=== PATIENT | female | born 1985 | race Caucasian/White ===

== ENCOUNTER 2017-05-03 18:29 | Inpatient (IN) | payer OTHER ==
[2017-05-03 19:39] VITALS: BMI 28.9
[2017-05-03 19:53] LABS: BASOPHIL 0.2 % (0-2.0); EOSINOPHIL 1.4 % (0-4.5); MCH 30.1 pg (25.7-33.7); MCHC 33.5 g/dl (32.0-36.0); MEAN CELL VOLUME 89.9 fl (80-96); MEAN PLT VOLUME 8.8 fl (7.5-11.1); NEUTROPHILS 72.3 % (42.8-82.8); PLATELET COUNT 203 K/MM3 (134-434); RDW 12.8 % (11.6-15.6); WHITE BLOOD COUNT 8.3 K/mm3 (4.0-10.0)
[2017-05-03 20:00] LABS: ANION GAP 9 (8-16); CALCIUM 8.6 mg/dL (8.5-10.1); CO2 25 mmol/L (21-32); CREATININE 0.5 mg/dL (0.55-1.02); GLUCOSE,RANDOM 87 mg/dL (74-106)
--- NOTE | 2017-05-03 20:00 | HP ---
Past Medical History - Primary Care Physician PCP:: Jacklyn Ivory - Admission Chief Complaint: 32 yo P0 @ 39.6 wks with advanced cervical dialation, late term History Source: Patient - Past Medical History ...: 1 ...Para: 0 ...Term: 0 ...: 0 ...Spon : 0 ...Induced : 0 ...Multiple Gestation: 0 ...LMP: 07/25/16 ... Weeks Gestation by Dates: 39.6 ...EDC by Dates: 05/01/17 ...EDC by Sono: 05/04/17 Heme/Onc: Yes: Anemia - Past Surgical History Past Surgical History: Yes: None Hx Myomectomy: No Hx Transabdominal Cerclage: No - Smoking History Smoking history: Never smoked Have you smoked in the past 12 months: No - Alcohol/Substance Use Hx Alcohol Use: No History of Substance Use: reports: None - Social History Usual Living Arrangement: Yes: With Spouse Home Medications - Allergies Allergies/Adverse Reactions: Allergies Allergy/AdvReac Type Severity Reaction Status Date / Time Penicillins Allergy Rash Verified 10/21/16 07:00 - Home Medications Home Medications: Ambulatory Orders Pnv95/Iron Fum/Folic Acid [ Caplet] 1 each PO DAILY 10/21/16 Physical Exam - Maternity Vital Signs: Vital Signs Temperature 98.1 F 05/03/17 19:19 Pulse Rate 93 H 05/03/17 19:19 Respiratory Rate 20 05/03/17 19:19 Blood Pressure 125/86 05/03/17 19:19 O2 Sat by Pulse Oximetry (%) Constitutional: Yes: Well Nourished Eyes: Yes: WNL HENT: Yes: WNL Neck: Yes: WNL Cardiovascular: Yes: WNL Lungs: Clear to auscultation Breast(s): Yes: WNL - Abdominal Exam/OB Fundal Height: 39 (EFW 3500gm) Number of Fetuses: Single Presentation: Vertex Contractions: Yes Regularity: Irregular Intensity: Mild Monitor Mode: External Heart Rate (range): 140 Heart Rate Location: Midline Category: I Accelerations: Uniform Decelerations: None - Vaginal Exam/OB Vaginal Bleediing: No Dilatation (cm): 4 Effacement (%): 80% Amniotic Membrane Status: Intact Presentation: Vertex/Position Station: -3 - Physical Exam Musculoskeletal: Yes: WNL Extremities: Yes: WNL ...Motor Strength: WNL Psychiatric: Yes: WNL - Labs Lab Results: CBC, BMP 05/03/17 19:29 Problem List - Problems (1) Anemia affecting first Code(s): O99.019 - ANEMIA COMPLICATING , UNSPECIFIED TRIMESTER Assessment/Plan 32 yo P0 @ 39.6wks late term with advanced cervical dilation Desires augmentation of labor risk of failed augmentation and possible c/s discussed Overall gynecoid pelvis and reassuring FHR Will start Pitocin Desires Epidural for pain management
[2017-05-03] MEDS ORDERED: OXYTOCIN 15 UNITS/ LR 250 ML 250 ML IVPB SCH (20:15)
[2017-05-03 20:23] LABS: INR 1.04 (0.82-1.09); PROTHROMBIN TIME (PATIENT) 11.4 SEC (9.98-11.88)
[2017-05-03 20:25] LABS: ACTIVATED PTT 26.2 SECONDS (26.9-34.4)
[2017-05-03] MEDS ORDERED: DEXTROSE 5%-LACTATED RINGERS 1,000 ML IV SCH (20:30)
[2017-05-03 20:42] LABS: HIV 1 & 2 AB NEGATIVE; HIV 1 AGp24 NEGATIVE
[2017-05-03] MEDS: ELECTROLYTE-148 SOLN 1,000 ML IV SCH (22:50)
[2017-05-04] MEDS ORDERED: FENTANYL/BUPIVACAINE/NS/PF - PCEA - 50 ML DISP.SYRIN EP SCH (00:15)
[2017-05-04] MEDS: ELECTROLYTE-148 SOLN 1,000 ML IV SCH (02:00)
[2017-05-04] MEDS ORDERED: BENZOCAINE 20% 57 GM BOTTLE TP PRN (06:37)
[2017-05-04] MEDS ORDERED: METHYLERGONOVINE MALEATE 0.2 MG/1 ML AMP IM PRN (06:37)
[2017-05-04] MEDS ORDERED: BENZOCAINE 28 GM HEMORRHOIDAL OINTMENT TP PRN (06:37)
[2017-05-04] MEDS ORDERED: BISACODYL 10 MG SUPP.RECT RC PRN (06:37)
[2017-05-04] MEDS ORDERED: WITCH HAZEL 50% (TUCKS) 40 PAD/JAR PAD TP PRN (06:37)
--- NOTE | 2017-05-04 06:37 | PN ---
Delivery - Delivery Vaginal Delivery: No Problems Type of Anesthesia: Epidural Episiotomy/Laceration: 1st degree EBL (cc): 400 (Methergine given) Delivery, Single - Stages of Labor Date 1st Stage Initiatied: 05/03/17 Time 1st Stage Initiated: 22:00 Date 2nd Stage Initiated: 05/04/17 Time 2nd Stage Initiated: 05:30 Date of Delivery: 05/04/17 Time of Delivery: 06:11 Date Placenta Delivered: 05/04/17 Time Placenta Delivered: :17 Placenta: Yes: Spontaneous, Normal Configuration - Condition of Gender: Female Position: Left, OA - 1 Minute Total Score: 9 5 Minutes Total Score: 9 - Feeding Plan Initial Plan: Elected not to breastfeed exclusively throughout hospitalization Benefits of Exclusively reinforced: Yes Remarks - Remarks Remarks: Uncomplicated head and shoulder delivery compound left hand and cord around the neck once, reduced delayed cord clamping, on maternal abdomen 32yo P0 @ 40wks
[2017-05-04] MEDS ORDERED: D5W-LR W/ 20 UNITS OXYTOCIN 1,000 ML IV SCH (06:45)
[2017-05-04] MEDS: IBUPROFEN 600 MG TABLET (FP) PO PRN ×2 (07:00→21:44)
[2017-05-04] MEDS: PRENATAL VITAMINS W/ FOLIC ACID TABLET (FP) PO SCH (10:03)
[2017-05-04] MEDS: FERROUS SO4 325 MG TABLET (FP) PO SCH ×2 (10:04→21:43)
[2017-05-04] MEDS: ACETAMINOPHEN 325 MG TABLET (FP) PO PRN (21:43)
[2017-05-05 08:07] LABS: BASOPHIL 0.4 % (0-2.0); MCH 30.9 pg (25.7-33.7); MCHC 34.4 g/dl (32.0-36.0); MEAN PLT VOLUME 8.2 fl (7.5-11.1); NEUTROPHILS 66.5 % (42.8-82.8); PLATELET COUNT 146 K/MM3 (134-434); RDW 13.6 % (11.6-15.6); WHITE BLOOD COUNT 7.5 K/mm3 (4.0-10.0)
[2017-05-05] MEDS: PRENATAL VITAMINS W/ FOLIC ACID TABLET (FP) PO SCH (09:16)
[2017-05-05] MEDS: FERROUS SO4 325 MG TABLET (FP) PO SCH ×2 (09:16→22:06)
[2017-05-05] MEDS ORDERED: SENNOSIDES/DOCUSATE COMBO (SENNA PLUS) TABLET (UD) PO PRN (22:00)
[2017-05-05] MEDS: IBUPROFEN 600 MG TABLET (FP) PO PRN (22:07)
[2017-05-05] MEDS: ACETAMINOPHEN 325 MG TABLET (FP) PO PRN (22:08)
--- NOTE | 2017-05-05 22:34 | PN ---
Post Progress Note - Subjective Subjective: No complaints. Lochia is scant Post Day: 1 Type of Delivery: Vital Signs: Vital Signs Temperature 97.9 F 05/05/17 07:10 Pulse Rate 71 05/05/17 07:10 Respiratory Rate 20 05/05/17 07:10 Blood Pressure 114/79 05/05/17 07:10 O2 Sat by Pulse Oximetry (%) 100 05/04/17 07:30 Breast Exam: Yes: Soft Uterus: Yes: Fundus Firm Abdomen/GI: Yes: Abdomen soft, Passing flatus, Tolerating PO Lochia: Yes: Rubra Lochia, amount: Small Extremities: Yes: Calves non-tender, Edema (trace) Perineum: Yes: Intact Activity: Ambulating - Labs Labs: CBC WBC 7.5 K/mm3 (4.0-10.0) 05/05/17 07:35 RBC 2.95 M/mm3 (3.60-5.2) L 05/05/17 07:35 Hgb 9.1 GM/dL (10.7-15.3) L 05/05/17 07:35 Hct 26.5 % (32.4-45.2) L 05/05/17 07:35 MCV 90.0 fl (80-96) 05/05/17 07:35 MCHC 34.4 g/dl (32.0-36.0) 05/05/17 07:35 RDW 13.6 % (11.6-15.6) 05/05/17 07:35 Plt Count 146 K/MM3 (134-434) D 05/05/17 07:35 MPV 8.2 fl (7.5-11.1) 05/05/17 07:35 Neutrophils % 66.5 % (42.8-82.8) 05/05/17 07:35 Lymphocytes % 24.9 % (8-40) D 05/05/17 07:35 Monocytes % 5.2 % (3.8-10.2) 05/05/17 07:35 Eosinophils % 3.0 % (0-4.5) D 05/05/17 07:35 Basophils % 0.4 % (0-2.0) 05/05/17 07:35 Assessment/Plan PPD #1 s/p Pt is well, stable. Not having heavy bleeding. Uterus is well contracted. Continue routing care
--- NOTE | 2017-05-06 07:52 | PN ---
Post Progress Note - Subjective Subjective: Patient without acute complaints. Reports tolerating oral intake without nausea or vomiting. Ambulating without dizziness. Denies fevers or chills. Pain well controlled with oral pain medication. without difficulty. Passing flatus. Post Day: 2 Type of Delivery: Vital Signs: Vital Signs Temperature 99.1 F 05/05/17 22:00 Pulse Rate 92 H 05/05/17 22:00 Respiratory Rate 20 05/05/17 22:00 Blood Pressure 130/90 05/05/17 22:00 O2 Sat by Pulse Oximetry (%) 100 05/04/17 07:30 Breast Exam: Yes: Soft, Engorged Uterus: Yes: Fundus Firm, Fundus below umbilicus Abdomen/GI: Yes: Abdomen soft, Passing flatus. No: Abdominal Distention, Tender Lochia: Yes: Rubra Lochia, amount: Small - Labs Labs: CBC WBC 7.5 K/mm3 (4.0-10.0) 05/05/17 07:35 RBC 2.95 M/mm3 (3.60-5.2) L 05/05/17 07:35 Hgb 9.1 GM/dL (10.7-15.3) L 05/05/17 07:35 Hct 26.5 % (32.4-45.2) L 05/05/17 07:35 MCV 90.0 fl (80-96) 05/05/17 07:35 MCHC 34.4 g/dl (32.0-36.0) 05/05/17 07:35 RDW 13.6 % (11.6-15.6) 05/05/17 07:35 Plt Count 146 K/MM3 (134-434) D 05/05/17 07:35 MPV 8.2 fl (7.5-11.1) 05/05/17 07:35 Neutrophils % 66.5 % (42.8-82.8) 05/05/17 07:35 Lymphocytes % 24.9 % (8-40) D 05/05/17 07:35 Monocytes % 5.2 % (3.8-10.2) 05/05/17 07:35 Eosinophils % 3.0 % (0-4.5) D 05/05/17 07:35 Basophils % 0.4 % (0-2.0) 05/05/17 07:35 Assessment/Plan 32 yo PPD#2 s/p , afebrile, vital signs stable, asymptomatic anemia, doing well 1. Patient stable for discharge home today. 2. Patient encouraged to contact MD for: - Severe pain not controlled by oral pain medication - Fevers or chills - Nausea or vomiting, intolerance of oral intake 3. Patient to follow up in office in 4-6 weeks for visit
--- NOTE | 2017-05-06 09:11 | DS ---
Physical Exam-NETWORK CONSULTANT Vital Signs: Vital Signs Temperature 99.1 F 05/05/17 22:00 Pulse Rate 92 H 05/05/17 22:00 Respiratory Rate 20 05/05/17 22:00 Blood Pressure 130/90 05/05/17 22:00 O2 Sat by Pulse Oximetry (%) 100 05/04/17 07:30 Labs: CBC, BMP 05/05/17 07:35 05/03/17 19:29 Delivery - Delivery Vaginal Delivery: No Problems Type of Anesthesia: Epidural Episiotomy/Laceration: 1st degree EBL (cc): 400 Delivery, Single - Stages of Labor Date 1st Stage Initiatied: 05/03/17 Time 1st Stage Initiated: 22:00 Date 2nd Stage Initiated: 05/04/17 Time 2nd Stage Initiated: 05:30 Date of Delivery: 05/04/17 Time of Delivery: 06:11 Time Placenta Delivered: :17 Placenta: Yes: Spontaneous, Normal Configuration - Condition of Infant Manifold Builder/A Operator Present: No Infant Gender: Female Weight: 6 lb 13 oz Position: Left, OA Total Hours ROM (Hrs/Mins): 47 - 1 Minute Total Score: 9 5 Minutes Total Score: 9 - [place] Feeding Plan Initial Plan: Elected not to breastfeed exclusively throughout hospitalization Benefits of Exclusively reinforced: Yes Discharge Summary Reason For Visit: AUGMENTATING LABOR Current Active Problems Anemia affecting first (Acute) Vaginal delivery (Acute) Procedures: Principal: vaginal delivery Hospital Course: patient remained afebrile, vital signs stable, for discharge home PPD #2 Condition: Good - Instructions Diet, Activity, Other Instructions: Physical activity Resume your normal everyday activity as tolerated no heavy lifting or exercise until seen by your surgeon. You may walk unlimited jam[place] of and climb stairs. You may resume driving the car when you feel safe and comfortable behind the wheel. No sexual activity as instructed. Wound care If you have a bandage, leave it on, and keep dry for 48-72 hours. After that time discard the outer bandage. If they are tapes on the skin under the out of bandage leave them in place. They will peel off in the next 7 to 10 days. Do Not Peel them off. You may shower the day after surgery. If there are tapes present on the skin, you may shower over them. Diet There are no dietary restrictions. Eat healthy, high-fiber foods. Drink 6 to 8 glasses of liquid each day. This will assist in keeping your bowels are regular. Pain management You may take Tylenol or acetaminophen or Ibuprofen (for example, Motrin, Advil etc.) from my pain prescription medication is ordered should be taken as prescribed for moderate to severe pain. Call MD for any of the following: Severe pain not relieved by medication Fever of 101 or higher Excessive bleeding or drainage on dressing Inability to urinate Referrals: Jacklyn Ivory MD [Staff Physician] - Disposition: HOME - Home Medications Comprehensive Discharge Medication List: Ambulatory Orders Pnv95/Iron Fum/Folic Acid [ Caplet] 1 each PO DAILY 10/21/16 Ibuprofen [Motrin -] 600 mg PO QID #60 tablet 05/06/17
[2017-05-06] MEDS: PRENATAL VITAMINS W/ FOLIC ACID TABLET (FP) PO SCH (10:07)
[2017-05-06] MEDS: FERROUS SO4 325 MG TABLET (FP) PO SCH (10:08)
[2017-05-06 16:02] VITALS: BP 124/51; PULSE 84; TEMP 98.2
== END 2017-05-06 15:00 | disposition home or self-care (01) | DRG 775 ==
LOC: JLDR 18:29 → J3W 05-04 09:02
PROVIDERS: ADMIT Obstetrics & Gynecology; ATTEND Obstetrics & Gynecology
PROC: 10E0XZZ Delivery of Products of Conception, External Approach (ICD-10-PCS; principal; 2017-05-04)
PROC: 0HQ9XZZ Repair Perineum Skin, External Approach (ICD-10-PCS; 2017-05-04)
PROC: 0W8NXZZ Division of Female Perineum, External Approach (ICD-10-PCS; 2017-05-04)
DX: O70.0 First degree perineal laceration during delivery (principal); O99.02 Anemia complicating childbirth; D64.9 Anemia, unspecified; Z3A.39 39 weeks gestation of pregnancy; Z37.0 Single live birth
CPT/HCPCS: 36415; 59409; 80048; 85025; 85610; 85730; 86593; 86850; 86900; 86901; 87389

== ENCOUNTER 2019-08-13 17:33 | Emergency (ER) | payer OTHER ==
[2019-08-13 17:51] VITALS: BMI 26.5
[2019-08-13] MEDS ORDERED: SODIUM CHLORIDE 1,000 ML IV STA ×3 (18:30→20:28)
--- NOTE | 2019-08-13 18:38 | PDOC ---
History of Present Illness - General Chief Complaint: Diarrhea Stated Complaint: DIARRHEA FEVER Time Seen by Provider: 08/13/19 18:16 History Source: Patient Exam Limitations: No Limitations - History of Present Illness Initial Comments: 08/13/19 18:30 34 yo F no PMH, , presenting with fever and diarrhea. States that she got back from the [place] on Wednesday, where her 2 year old picked up chicken pox. Developed fevers on Wednesday as well as diffuse muscle aches, however, she did not check the number at home. Reports poor oral intake. Had one episode of watery diarrhea yesterday and two episodes today. Tried to eat some soup today and immediately vomited it up. Not currently feeling nauseous. Denies CP, SOB, abdominal pain, constipation, MCCART[place]. Past History - Past Medical History Allergies/Adverse Reactions: Allergies Allergy/AdvReac Type Severity Reaction Status Date / Time Penicillins Allergy Rash Verified 08/13/19 17:51 Home Medications: Ambulatory Orders Acetaminophen [Tylenol] 325 mg PO QID PRN #30 capsule 08/13/19 Ibuprofen 200 mg PO QID PRN #30 tablet 08/13/19 Asthma: No Cancer: No Cardiac Disorders: No COPD: No Diabetes: No HTN: No Seizures: No Thyroid Disease: No - Immunization History Immunization Up to Date: Yes - Psycho Social/Smoking Cessation Hx Smoking History: Never smoked Have you smoked in the past 12 months: No Hx Alcohol Use: No Drug/Substance Use Hx: No Substance Use Type: None Hx Substance Use Treatment: No Review of Systems - Review of Systems Able to Perform ROS?: Yes Constitutional: Yes: Chills, Fever HEENTM: No: Blurred Vision, Hearing Loss, Throat Swelling, Difficulty Swallowing Respiratory: No: Cough, Orthopnea, Shortness of Breath Cardiac (ROS): No: Chest Pain, Edema, Irregular Heart Rate, Lightheadedness, Syncope, Chest Tightness ABD/GI: Yes: Diarrhea, Vomiting. No: Abd. Pain w/ defecation, Blood Streaked Bowels, Constipated, Difficulty Swallowing, Nausea : No: Burning, Dysuria, Discharge, Frequency Musculoskeletal: Yes: Muscle Pain. No: Back Pain Integumentary: No: Bruising Neurological: No: Headache, Numbness, Tingling, Weakness *Physical Exam - Vital Signs Last Vital Signs Temp Pulse Resp BP Pulse Ox 102.1 F H 65 18 99/72 100 08/13/19 17:49 08/13/19 17:49 08/13/19 17:49 08/13/19 17:49 08/13/19 17:49 - Physical Exam Comments: 08/13/19 18:39 Gen: well-developed, well-nourished, laying under multiple layers of clothing, mild distress HEENT: atraumatic, normocephalic, dry mucous membranes Neck: trachea midline, supple CV: regular rhythm, tachycardic Pulm: CTA b/l, no wheezing Abd: soft, non-distended, non-tender MSK: full ROM, 2+ pulses Extr: no edema, no deformities Skin: warm, dry Neuro: AAOX4, CN II-XII, FTN intact, EOMI ED Treatment Course - LABORATORY CBC & Chemistry Diagram: 08/13/19 18:47 08/13/19 18:47 Medical Decision Making - Medical Decision Making 08/13/19 18:41 Concern for viral infection, possibly flu. - CBC, CMP - 1L NS - Ofirmev - will hold off on anti-nausea medications for now, not actively nauseous 08/13/19 20:08 Patient feeling better s/p 2 liters NS, Ofirmev and ibuprofen. Will PO challenge with turkey sandwich. Pressures remaining 90s over 50s, but no longer tachycardic. 08/13/19 20:28 Patient feels back to baseline, BP 98/62. Will recheck temperature, give another bolus of 1L NS. 08/13/19 21:42 90s/60s, temperature down to 99. Patient able to eat. Will discharge home, will encourage to drink lots of fluids. Discharge - Discharge Information Problems reviewed: Yes Clinical Impression/Diagnosis: Viral syndrome Condition: Improved Disposition: HOME - Admission No - Additional Discharge Information Prescriptions: Acetaminophen [Tylenol] 325 mg PO QID PRN #30 capsule PRN Reason: Pain Or Fever Ibuprofen 200 mg PO QID PRN #30 tablet PRN Reason: Pain Or Fever - Follow up/Referral - Patient Discharge Instructions Patient Printed Discharge Instructions: DI for Viral Syndrome Additional Instructions: You were seen with fevers for multiple days. Your labs were concerning for a potential viral infection. Your symptoms improved with fluids, acetaminophen, and ibuprofen. Follow up with your primary care doctor. Take ibuprofen and acetaminophen as needed at home. Return to the ED if you develop vomiting or weakness. - Post Discharge Activity Work/Back to School Note: Back to Work
[2019-08-13] MEDS ORDERED: ACETAMINOPHEN 1000 MG/100 ML VIAL (NON FORMULARY) IVPB ONE (18:42)
[2019-08-13] MEDS ORDERED: ACETAMINOPHEN INJECTION 100 ML IVPB ONE (18:49)
[2019-08-13 18:56] LABS: BASO % 0.8 % (0-2.0); EOS % 0.1 % (0-4.5); HEMATOCRIT 39.5 % (32.4-45.2); HEMOGLOBIN 13.7 GM/dL (10.7-15.3); LYMPH % 27.9 % (8-40); MCH 30.1 pg (25.7-33.7); MCHC 34.6 g/dl (32.0-36.0); MEAN CELL VOLUME 87.1 fl (80-96); MEAN PLT VOLUME 9.1 fl (7.5-11.1); MONO % 8.4 % (3.8-10.2); NEUT % 62.8 % (42.8-82.8); PLATELET COUNT 122 K/MM3 (134-434); RBC 4.54 M/mm3 (3.60-5.2); RDW 12.8 % (11.6-15.6); WHITE BLOOD COUNT 2.9 K/mm3 (4.0-10.0)
[2019-08-13 19:32] LABS: ALBUMIN 3.4 g/dl (3.4-5.0); BILIRUBIN,TOTAL 0.5 mg/dL (0.2-1); BLOOD UREA NITROGEN 11.1 mg/dL (7-18); CALCIUM 8.2 mg/dL (8.5-10.1); CREATININE 0.8 mg/dL (0.55-1.3); POTASSIUM 3.9 mmol/L (3.5-5.1)
[2019-08-13] MEDS ORDERED: IBUPROFEN 600 MG TABLET (FP) PO ONE ×2 (19:49→19:56)
--- NOTE | 2019-08-13 21:19 | PDOC ---
Documentation entered by Jero Santiago SCRIBE, acting as scribe for Leslie Campbell MD. Leslie Campbell MD: This documentation has been prepared by the Jack webster Nirvannie, SCRIBE, under my direction and personally reviewed by me in its entirety. I confirm that the documentation accurately reflects all work, treatment, procedures, and medical decision making performed by me. Attending Attestation - Resident Resident Name: Jacky Oneal - ED Attending Attestation I have performed the following: I have examined & evaluated the patient, The case was reviewed & discussed with the resident, I agree w/resident's findings & plan - HPI HPI: 08/13/19 21:13 34 yo female p/w fever and diarrhea after visiting the [facility] - Physicial Exam PE: 08/13/19 21:14 wnwd 34 yo female p/w fever and diarrhea head ncat neck supple lungs cta b/l cvs tachycardia abd no rebound, nontender skin warm and dry extremities no edema neuro axox3,ambulatory - Medical Decision Making 08/13/19 21:16 temp was 102 orally cbc mild leukopenia comp unremarkable Benign abd exam pt has had loose stools since visiting pt is alert,conversant, denies any nausea or current vomiting pt received IV acetaminophen and IV fluids 08/13/19 22:02 pt wants to go home, feels much better
[2019-08-13 21:54] VITALS: BP 91/58; PULSE 88; TEMP 98.6
== END 2019-08-13 22:07 | disposition home or self-care (01) ==
LOC: JER 17:33
PROC: 3E033NZ Introduction of Analgesics, Hypnotics, Sedatives into Peripheral Vein, Percutaneous Approach (ICD-10-PCS; principal; 2019-08-13)
DX: B34.9 Viral infection, unspecified (principal)
CPT/HCPCS: 36415; 80053; 85025; 99282-25; J0131; J7030

== ENCOUNTER 2019-08-15 14:13 | Emergency (ER) | payer OTHER ==
[2019-08-15] MEDS ORDERED: diphenhydrAMINE HCL 25 MG CAPSULE (FP) PO ONE (14:19)
--- NOTE | 2019-08-15 14:19 | PDOC ---
Rapid Medical Evaluation Time Seen by Provider: 08/15/19 14:16 Medical Evaluation: Allergies Allergy/AdvReac Type Severity Reaction Status Date / Time Penicillins Allergy Rash Verified 08/13/19 17:51 08/15/19 14:16 CC: itching to hands or face x 12 hours- taking Motrin for URI. No other change in meds/cosmetics/foods/cleansers. PE: No drooling, resp distress, stridor. Fine pink puritic rash b/l arms and thighs Orders: benadryl Patient to proceed to ER for evaluation. 08/15/19 14:18 Discharge Disposition - Diagnosis Rash - Referrals - Patient Instructions - Post Discharge Activity
[2019-08-15 14:22] VITALS: BP 98/66; PULSE 77; TEMP 97.4; BMI 26.5
[2019-08-15] MEDS ORDERED: DEXAMETHASONE LIQUID 0.5 MG/5 ML PO ONE (14:55)
[2019-08-15] MEDS ORDERED: RANITIDINE HCL 150 MG TABLET (FP) PO ONE (14:55)
--- NOTE | 2019-08-15 15:00 | PDOC ---
History of Present Illness - General Chief Complaint: Rash Stated Complaint: ITCHING/POSSIBLE ALLERGY Time Seen by Provider: 08/15/19 14:16 History Source: Patient Exam Limitations: No Limitations Past History - Travel Traveled outside of the country in the last 30 days: No Close contact w/someone who was outside of country & ill: No - Past Medical History Allergies/Adverse Reactions: Allergies Allergy/AdvReac Type Severity Reaction Status Date / Time Penicillins Allergy Rash Verified 08/15/19 14:20 Home Medications: Ambulatory Orders Acetaminophen [Tylenol] 325 mg PO QID PRN #30 capsule 08/13/19 Ibuprofen 200 mg PO QID PRN #30 tablet 08/13/19 Diphenhydramine HCl [Benadryl -] 25 mg PO Q8H #21 capsule 08/15/19 predniSONE [Deltasone -] 40 mg PO DAILY #8 tablet 08/15/19 Asthma: No Cancer: No Cardiac Disorders: No COPD: No Diabetes: No HTN: No Seizures: No Thyroid Disease: No - Immunization History Immunization Up to Date: Yes - Psycho Social/Smoking Cessation Hx Smoking History: Never smoked Have you smoked in the past 12 months: No Information on smoking cessation initiated: No Hx Alcohol Use: No Drug/Substance Use Hx: No Substance Use Type: None Hx Substance Use Treatment: No Review of Systems - Review of Systems Able to Perform ROS?: Yes Comments:: 08/15/19 14:55 CONSTITUTIONAL: Absent: fever, chills, diaphoresis, generalized weakness, malaise, loss of appetite HEENT: Absent: rhinorrhea, nasal congestion, throat pain, throat swelling, difficulty swallowing, mouth swelling, ear pain, eye pain, visual Changes CARDIOVASCULAR: Absent: chest pain, loss of consciousness, palpitations, irregular heart rate, peripheral edema RESPIRATORY: Absent: cough, shortness of breath, dyspnea with exertion, orthopnea, wheezing, stridor, hemoptysis SKIN: Presents: rash, itching Absent: pallor NEUROLOGIC: Absent: headache, focal weakness or paresthesias, dizziness, unsteady gait, seizure, mental status changes, bladder or bowel incontinence PSYCHIATRIC: Absent: anxiety, depression, suicidal or homicidal ideation, hallucinations. Is the patient limited Thai proficient: No *Physical Exam - Vital Signs Last Vital Signs Temp Pulse Resp BP Pulse Ox 97.4 F L 77 17 98/66 96 08/15/19 14:16 10/01/19 14:16 08/15/19 14:16 08/15/19 14:16 08/15/19 14:16 - Physical Exam Comments: 08/15/19 14:57 GENERAL: The patient is awake, alert, and fully oriented, in no acute distress. HEAD: Normal with no signs of trauma. EYES: Pupils equal, round and reactive to light, extraocular movements intact, sclera anicteric, conjunctiva clear. LUNGS: CTAB, (-) w/r/r. No stridor EXTREMITIES: Normal range of motion, no edema. NEUROLOGICAL: Normal speech, normal gait. PSYCH: Normal mood, normal affect. SKIN: Blanching, pruitic patches to the arms and legs b/l.Warm, Dry, normal turgor, no rashes or lesions noted. ED Treatment Course - Medications Given in the ED: ED Medications Discontinued Medications Generic Name Dose Route Start Last Admin Trade Name Freq PRN Reason Stop Dose Admin Diphenhydramine HCl 50 mg 08/15/19 14:19 08/15/19 14:43 Benadryl - PO 08/15/19 14:20 50 mg ONCE ONE Administration Medical Decision Making - Medical Decision Making 08/15/19 14:58 The patient is a 34 y/o F with no PMH presents to the ER for rash to her arms and legs starting last night. She notes her hands got itchy first and it spread to her arms and legs. Pt states she was seen in the ER on Wednesday for fever and given Motrin. Pt states she doesn't usually take Motrin. Denies fever, chills, difficulty breathing, shortness of breath, and stridor. A/P: Rash On exam pt with blanching erythematous rash to the arms and legs bilaterally consistent with an ALLERGIC reaction. Patient had Motrin for the first time in a long time on Wednesday. Possible that this is an ALLERGY to Motrin. Advised patient to not take Motrin and to follow- up with an graphic design teacher for testing. Lungs are clear to auscultation bilaterally, no stridor. Area is clear and maintained. Discharge home with prednisone, Benadryl and Zantac for ALLERGIC reaction ALLERGY referral given. I discussed the physical exam findings, ancillary test results and final diagnoses with the patient. I answered all of the patient's questions. The patient was satisfied with the care received and felt comfortable with the discharge plan and treatment plan. The Patient agrees to follow up with the primary care physician/specialist within 24-72 hours. Return precautions were given. Discharge - Discharge Information Problems reviewed: Yes Clinical Impression/Diagnosis: Rash Condition: Stable Disposition: HOME - Admission No - Follow up/Referral Referrals: Jacklyn Ivory MD [Primary Care Provider] - Go Shukla MD [Staff Physician] - - Patient Discharge Instructions Patient Printed Discharge Instructions: DI for General Allergic Reactions Additional Instructions: You were evaluated for your rash today It is most likely allergic in nature Take the prednisone starting tomorrow. You received your first dose in the ER today Take the benadryl every 8 hours for the itching until your symptoms resolve Take a Zyrtec daily Follow up with an graphic design teacher. A referral for Dr. Shukla has been given to you Do not take Motrin until you follow up with the graphic design teacher Return to the ER for difficulty breathing, shortness of breath, changes in the way you talk or if you have any changes in your symptoms - Post Discharge Activity Work/Back to School Note: Back to Work
== END 2019-08-15 15:08 | disposition home or self-care (01) ==
LOC: JERFT 14:13 → JER 14:13 → JERFT 15:08
DX: R21 Rash and other nonspecific skin eruption (principal)
CPT/HCPCS: 99281-25